=== PATIENT | female | born 1950 | race Caucasian/White ===

== ENCOUNTER → 2016-08-31 | Outpatient (CLI) | payer MEDICARE ==
[2016-08-31 11:21] LABS: Basophils # (A) 0.1 k/uL (0-0.2); Basophils % (A) 1 %; CH 29.4; CHCM 33.4; Eosinophils # (A) 0.3 k/uL (0-0.7); Eosinophils % (A) 3 %; HCT 39.3 % (34.0-46.0); HGB 13.2 gm/dL (11.4-16.0); Luc # (Auto) 0.14; Luc % (Auto) 1; Lymphocytes # (A) 3.4 k/uL (1.0-4.8); Lymphocytes % (A) 30 %; MCH 29.8 pg (25.0-35.0); MCHC 33.7 g/dL (31.0-37.0); MCV 88.6 fL (80.0-100.0); Mean Platelet Volume 8.3; Monocytes # (A) 0.5 k/uL (0-1.0); Monocytes % (A) 4 %; Neutrophils # (A) 6.7 k/uL (1.3-7.7); Neutrophils % (A) 61 %; RBC 4.44 m/uL (3.80-5.40); RDW 13.7 % (11.5-15.5); WBC 11.1 k/uL (3.8-10.6); WBC (Perox) 10.68
== END | disposition home or self-care (01) ==
LOC: LABPAT 10:05
PROVIDERS: ATTEND Obstetrics & Gynecology
DX: Z01.812 Encounter for preprocedural laboratory examination (principal); N95.0 Postmenopausal bleeding; N84.0 Polyp of corpus uteri
CPT/HCPCS: 85025

== ENCOUNTER 2016-09-15 07:05 | Day surgery (SDC) | payer MEDICARE ==
[2016-09-07 15:39] VITALS: BMI 36.3
--- NOTE | 2016-09-14 15:08 | HP ---
This is a 65 -year-old female who presented with postmenopausal bleeding, bright red for approximately four months. The patient underwent an office endometrial biopsy which revealed fragments of endometrial polyps with glandular disorder. With this in mind, she is scheduled for diagnostic hysteroscopy, D&C, and polypectomy. I have reviewed with her in detail, the risks, benefits and alternatives of this procedure. A second opinion has been offered and declined. All questions answered to the patients satisfaction. The ACOG pamphlet on the procedure have been given to the patient for her thorough review. Past medical history is significant for diabetes, hypertension and history of stroke. Past surgical history: Carotid artery repair in 2010. Current medications: 1. Amlodipine 5 mg once daily. 2. Baby aspirin daily. 3. Benazepril 20 mg once daily. 4. Glipizide 5 mg two times daily before meals. 5. Meloxicam 15 mg once daily. 6. Metoprolol 50 mg once daily. ALLERGIES: INCLUDE PENICILLIN TO WHICH REPORTS A RASH. FAMILY HISTORY: Significant for heart attack in the patients brother and hypertension. Reproductive history: Significant for 4 pounds, 12 ounce vaginal . SOCIAL HISTORY: Never been a tobacco smoker. Denies alcohol and drug use. The patient is and retired. REVIEW OF SYSTEMS: Otherwise negative. On examination, this is a pleasant white female, she is 4 foot 9 and one half inches, 176 pounds, BMI 37, blood pressure 142/90 in the seated position. The general physical exam is within normal limits. HEENT: exam is negative. No thyromegaly. No cervical lymphadenopathy. Chest is clear in all singleton. Abdomen is soft, nontender, no organosplenomegaly. There is no CVA tenderness. The breasts exam reveals breasts to be bilaterally symmetric to inspection, no skin dimpling, nipple discharge or axillary adenopathy. The pelvic exam reveals normal appearing external genitalia, cervix is multiparous. Uterus is small, mobile, nontender. Adnexa are negative bilaterally. IMPRESSION: Four month history of postmenopausal bleeding, office endometrial sampling revealing fragments of endometrial polyps with glandular disorder. PLAN: The patient is scheduled for diagnostic hysteroscopy, D&C and polypectomy. All risks, benefits and alternatives of the above procedure are reviewed with the patient. Second opinion offered and declined. All questions answered. [facility] HOSPITALJessica
[~2016-09-15 07:05] MED LIST: FAMOTIDINE 20 MG/2 ML VIAL IV PRN; HYDROmorphone 1 MG/ML 1 ML SYRINGE IVP PRN; LACTATED RINGERS 1,000 ML IV SCH; LIDOCAINE 1% 20 ML VIAL (10MG/ML) FOR IV START INTRADERMA PRN; ONDANSETRON 4 MG/2 ML VIAL IVP PRN; Pre Op ABX Message 1 EACH MISC MISCELLANE ONE
[2016-09-15 07:48] LABS: Glucose,Whole Blood 206 mg/dL (75-99)
[2016-09-15] MEDS ORDERED: PROPOFOL 10 MG/ML 20 ML VIAL IV ONE (08:03)
[2016-09-15] MEDS ORDERED: fentaNYL (PF) 50 MCG/ML 2 ML AMP ONE (08:03)
[2016-09-15] MEDS ORDERED: LIDOCAINE 1% INJ 10MG/ML (20 ML MDV) ONE (08:03)
[2016-09-15] MEDS ORDERED: MIDAZOLAM 2 MG/2 ML VIAL ONE (08:03)
[2016-09-15] MEDS ORDERED: KETOROLAC 30 MG/ML 1 ML VIAL ONE (08:03)
--- NOTE | 2016-09-15 08:28 | P.OP ---
Date of Procedure: 09/15/16 Preoperative Diagnosis: Postmenopausal bleeding, endometrial polyps Postoperative Diagnosis: Pathology pending Procedure(s) Performed: Hysteroscopy, polypectomy, D&C Implants: Anesthesia: GETA Surgeon: Aydee Escobar Estimated Blood Loss (ml): 25 IV fluids (ml): 400 Urine output (ml): 100 Pathology: other (Intrauterine curettings) Condition: stable Disposition: PACU Indications for Procedure: Operative Findings: Description of Procedure: Patient is brought to the operating suite where a general anesthetic is administered. She's placed in the dorsal lithotomy position. The cervix vagina perineum and perirectal areas are all prepped and draped in the usual sterile fashion. The appropriate timeout is performed to assure proper patient and procedural identification. Antibiotics are not deemed necessary. Please note that preoperative blood sugar was 209, this will be re-checked in the recovery room. The bladder is drained for approximately 100 mL of clear yellow urine. Examination under anesthesia reveals a small anteverted uterus, negative adnexa bilaterally. Weighted speculum was placed into the vagina. There is a grade 3- 4 rectocele noted along with a grade 2-3 uterine prolapse as well. The anterior lip of the cervix is grasped with a double-tooth tenaculum. The cervix and uterus then sounded to a depth of 8 cm. The cervix is gently and systematically dilated using Hanks dilators. The hysteroscope was placed and fluid is injected into the cavity to distend the cavity. Inspecting the cavity does reveal the presence of multiple small polyps. The hysteroscope was removed. A medium sharp curette is used and the cavity is gently and systematically curettaged for a moderate amount of tissue and endometrial polyps. When this is complete, polyp forceps are used and no additional tissue is procured. The double-tooth tenaculum is removed from the anterior lip of the cervix. Hemostasis is excellent. All sponge needle and enhancement counts are correct at the end of the procedure. Patient is brought back to the recovery room in very good condition with stable vital signs including pulse of 72, blood pressure 124/71. Toradol is given prior to leaving the operative suite. Patient will follow-up with me in the office in 2 weeks.
[2016-09-15 08:40] VITALS: TEMP 97.3
[2016-09-15 08:50] VITALS: RESP 16
[2016-09-15 08:53] LABS: Glucose,Whole Blood 202 mg/dL (75-99)
[2016-09-15 10:02] VITALS: BP 150/76; PULSE 67
== END 2016-09-15 10:09 | disposition home or self-care (01) ==
LOC: OR 07:05
PROVIDERS: ATTEND Obstetrics & Gynecology
DX: N85.00 Endometrial hyperplasia, unspecified (principal); N81.2 Incomplete uterovaginal prolapse; N84.0 Polyp of corpus uteri; E11.9 Type 2 diabetes mellitus without complications; Z79.84 Long term (current) use of oral hypoglycemic drugs; I10 Essential (primary) hypertension; Z86.73 Personal history of transient ischemic attack (TIA), and cerebral infarction without residual deficits; Z79.1 Long term (current) use of non-steroidal anti-inflammatories (NSAID); Z79.899 Other long term (current) drug therapy; Z88.0 Allergy status to penicillin
CPT/HCPCS: 88305; 58558; J2250; J2405; J2001; J3010; J1885; J2704

== ENCOUNTER → 2017-10-19 | Outpatient (CLI) | payer MEDICARE ==
[2017-10-19 11:05] LABS: ALT 27 U/L (9-52); AST 21 U/L (14-36); Cholesterol 171 mg/dL (<200); HDL Cholesterol 30 mg/dL (40-60); LDL Cholesterol,Calculated 85 mg/dL (0-99); Triglycerides 280 mg/dL (<150)
== END | disposition home or self-care (01) ==
LOC: LABWHC1 09:55
PROVIDERS: ATTEND Internal Medicine Cardiovascular Disease
DX: E78.2 Mixed hyperlipidemia (principal)
CPT/HCPCS: 36415; 80061; 84450; 84460

== ENCOUNTER → 2020-06-25 | Outpatient (CLI) | payer MEDICARE ==
[2020-06-25 09:35] LABS: Basophils # (A) 0.1 k/uL (0-0.2); Basophils % (A) 1 %; Eosinophils # (A) 0.2 k/uL (0-0.7); Eosinophils % (A) 2 %; HCT 34.2 % (34.0-46.0); HGB 11.5 gm/dL (11.4-16.0); Lymphocytes # (A) 2.8 k/uL (1.0-4.8); Lymphocytes % (A) 29 %; MCH 29.5 pg (25.0-35.0); MCHC 33.7 g/dL (31.0-37.0); MCV 87.4 fL (80.0-100.0); Mean Platelet Volume 8.5; Monocytes # (A) 0.3 k/uL (0-1.0); Monocytes % (A) 4 %; Neutrophils % (A) 63 %; Platelet Count 325 k/uL (150-450); RBC 3.91 m/uL (3.80-5.40); RDW 13.9 % (11.5-15.5); WBC 9.5 k/uL (3.8-10.6)
[2020-06-25 09:56] LABS: Potassium 4.7 mmol/L (3.5-5.1)
== END | disposition home or self-care (01) ==
LOC: LABPAT 08:54
PROVIDERS: ATTEND Obstetrics & Gynecology
DX: Z01.812 Encounter for preprocedural laboratory examination (principal); N95.0 Postmenopausal bleeding; N81.6 Rectocele; N81.4 Uterovaginal prolapse, unspecified; N84.1 Polyp of cervix uteri; E11.9 Type 2 diabetes mellitus without complications
CPT/HCPCS: 36415; 80051; 82565; 82947; 84520; 85025; 86850; 86900; 86901; 87086

== ENCOUNTER 2020-07-02 05:37 | Day surgery (SDC) | payer MEDICARE ==
[2020-06-27 12:28] VITALS: BMI 32.7
[~2020-07-02 05:37] MED LIST changes: +DEXAMETHASONE SOD PHOSPHATE 4 MG/ML 1 ML VIAL IV ONE; -FAMOTIDINE 20 MG/2 ML VIAL IV PRN; -HYDROmorphone 1 MG/ML 1 ML SYRINGE IVP PRN; -LIDOCAINE 1% 20 ML VIAL (10MG/ML) FOR IV START INTRADERMA PRN; +MIDAZOLAM 2 MG/2 ML VIAL IV PRN; +ONDANSETRON 4 MG/2 ML VIAL IVP ONE; -ONDANSETRON 4 MG/2 ML VIAL IVP PRN; -Pre Op ABX Message 1 EACH MISC MISCELLANE ONE
[2020-07-02 06:30] LABS: Glucose,Whole Blood 214 mg/dL (75-99)
[2020-07-02] MEDS ORDERED: LIDOCAINE 1% (10MG/ML) FOR IV START INTRADERMA ONE (06:40)
[2020-07-02] MEDS ORDERED: HYDROmorphone 0.5 MG/0.5 ML SYRINGE IVP PRN (07:00)
[2020-07-02] MEDS ORDERED: fentaNYL (PF) 50 MCG/ML 2 ML AMP IVP ONE (07:15)
[2020-07-02] MEDS ORDERED: ROCURONIUM 10 MG/ML (5 ML VIAL) IV ONE (07:33)
[2020-07-02] MEDS ORDERED: NEOSTIGMINE 1 MG/ML 10 ML VIAL ONE (07:33)
[2020-07-02] MEDS ORDERED: fentaNYL (PF) 50 MCG/ML 2 ML AMP ONE (07:33)
[2020-07-02] MEDS ORDERED: GLYCOPYRROLATE 0.2 MG/ML 2 ML VIAL ONE (07:33)
[2020-07-02] MEDS ORDERED: PROPOFOL 10 MG/ML 20 ML VIAL IV ONE (07:33)
[2020-07-02] MEDS ORDERED: WATER FOR INJECTION, STERILE 10 ML VIAL IV ONE (07:33)
[2020-07-02] MEDS ORDERED: MORPHINE SULFATE (PF) 0.3 MG/0.3 ML SYR ONE (07:33)
[2020-07-02] MEDS ORDERED: LIDOCAINE 1% INJ 10MG/ML (20 ML MDV) ONE (07:33)
[2020-07-02] MEDS ORDERED: PHENYLEPHRINE-0.9% NACL SYG 1,000 MCG/10 ML SYRINGE ONE (07:33)
[2020-07-02] MEDS ORDERED: SUCCINYLCHOLINE CHLORIDE 100 MG/5 ML SYR IV ONE (07:33)
[2020-07-02] MEDS ORDERED: ePHEDrine SULFATE/0.9% NACL/PF 50 MG/5 ML SYRINGE IV ONE (07:33)
[2020-07-02] MEDS ORDERED: VASOPRESSIN 20 UNIT/ML 1 ML VIAL SQ ONE (08:00)
[2020-07-02] MEDS ORDERED: BACITRACIN ZINC 500 UNIT/GM OINT 28.4 GM TUBE TOPICAL ONE ×2 (08:12→08:57)
[2020-07-02] MEDS ORDERED: METOCLOPRAMIDE 5 MG/ML 2 ML VIAL IVP PRN (09:18)
[2020-07-02] MEDS ORDERED: ONDANSETRON 4 MG/2 ML VIAL IVP PRN (09:18)
[2020-07-02] MEDS ORDERED: diphenhydrAMINE 50 MG/ML 1 ML VIAL IVP PRN (09:18)
[2020-07-02] MEDS ORDERED: KETOROLAC 15 MG/ML 1 ML VIAL IVP PRN (09:18)
[2020-07-02] MEDS ORDERED: SIMETHICONE 80 MG CHEWABLE PO PRN (09:18)
--- NOTE | 2020-07-02 09:18 | P.OP ---
Date of Procedure: 07/02/20 Preoperative Diagnosis: Postmenopausal bleeding, large endocervical polyp, uterine prolapse, grade 3-4 rectocele Postoperative Diagnosis: Same, pathology pending, normal-appearing ovaries bilaterally Procedure(s) Performed: Gen. hysterectomy, posterior repair Anesthesia: JOYCE Surgeon: Aydee Escobar Tig Welder #1: Natasha Navarrete Estimated Blood Loss (ml): 50 IV fluids (ml): 500 Urine output (ml): 100 Pathology: other (Endocervical polyp, cervix and uterus.) Condition: stable Disposition: PACU Description of Procedure: Patient is brought to the operating suite after a spinal with Duramorph is placed in the preoperative area. She's placed in the dorsal lithotomy position after general anesthetic is administered. Antibiotics are given. The appropriate timeout is performed to assure proper patient and procedural identification. The cervix, vagina, and perineal bodies are all prepped and draped in usual sterile fashion. The bladder is drained for approximately 100 mL of clear yellow. Weighted speculum was placed into the vagina. Anterior lip of the cervix is grasped with a double-tooth tenaculum. The large pedunculated endocervical polyp is removed for better visualization of the anatomy and surgical field. Cervix is injected circumferentially with a dilute Pitressin solution. A [place] blade scalpel is used to incise the cervix circumferentially with a V positioning at 6:00. A sponge is used to sweep the mucosa from the underlying fascial plane. Peritoneum is entered at 6:00, suture tied with 2-0 Vicryl, and held with a hemostat. Large billed speculum is then placed into the peritoneal cavity. The right uterosacral ligament is identified, clamped cut and suture ligated, held with a hemostat laterally. At all times the vaginal mucosa is swept well from the operative field to avoid bladder and/or ureteral injury. The same procedure is carried out contralaterally, again the 0 Vicryl suture is held with a hemostat laterally. The vascularization is skeletonized, doubly clamped cut and suture ligated. Additional pedicles are taken superior to the vessels bilaterally. Peritoneum is entered at 12:00, the uterus is "walked out" posteriorly. Meliza clamps are used across the final pedicles and the uterus and cervix are removed. The pedicles are securely tied with 0 Vicryl, flashed, and retied. Bilateral ovaries are visualized with a sponge stick and noted to be normal, left in situ. The speculum is then changed to the shallow billed speculum. The 2-0 Vicryl suture placed at 6:00 is brought around circumferentially to close the peritoneum in a pursestring fashion. The uterosacral cardinal ligaments are now brought across to incorporate the opposite ligament as well as vaginal mucosa. Several additional [id number] sutures of 0 Vicryl is used to close the vaginal cuff. Hemostasis is very good. Training her portion of tissue is removed from the perineal body. The posterior vaginal mucosa is injected with the same dilute Pitressin solution in the midline to the apex of the defect. Metzenbaum scissors are used to undermine this area, the edges of the mucosa are held with Allis clamps and a fanlike fashion. Sponge rolled finger is used to sweep the fascia from the overlying mucosal edge. Redundant mucosa is trimmed with Metzenbaum scissors. 2-0 Vicryl suture is used to bring the fascial edges together thereby completely reducing the rectocele. 2-0 Vicryl sutures used in a running locking manner now to close the posterior vaginal wall with an episiotomy like approach for final closure. The vagina is packed with a 1 inch iodophor gauze with basic tracing. Tran catheter is placed, urine is clear. Rectal exam reveals smooth mucosa with no defects palpable growing or other anomalies. Patient is brought back to the recovery room in very good condition with stable vital signs including a pulse of 77, 97% O2 saturation, blood pressure 151/82.
[2020-07-02 09:31] LABS: Glucose,Whole Blood 265 mg/dL (75-99)
[2020-07-02] MEDS ORDERED: INSULIN ASPART (NovoLOG) 100 UNIT/ML VIAL SQ ONE (09:33)
--- NOTE | 2020-07-02 14:29 | P.ANPRN ---
Procedure Note - Anesthesia - Epidural/Spinal Spinal Time Out Performed: Yes Date of Procedure: 07/02/20 Procedure Start Time: 07:20 Procedure Stop Time: 07:35 Location of Patient: PreOp Indication: Acute Post-Operative Pain, Requested by Surgeon Sedation Type: Sedate with meaningful contact maintained Preparation: Sterile Prep Number of Attempts: 2 Position: Sitting Needle Guage: 25 Injectate: Other Blood Aspirated: No Pain Paresthesia on Injection Noted: No Events: Uneventful and Well Tolerated (0.4mg duramorph and 25mcg fentanyl)
[2020-07-02] MEDS: SENNOSIDES-DOCUSATE SODIUM 1 EACH TAB PO SCH (23:44)
[2020-07-02] MEDS ORDERED: IBUPROFEN 400 MG TAB PO PRN (23:45)
[2020-07-03] MEDS: IBUPROFEN 600 MG TAB PO PRN ×3 (00:06→12:11)
[2020-07-03 05:52] VITALS: RESP 16
--- NOTE | 2020-07-03 07:36 | P.PN ---
Progress Note - Text Progress Note Date: 07/03/20 (869) Anesthesia Postop day 1 Subjective: Status Post vaginal hysterectomy with Duramorph. Patient seen and examined. Doing well without complaint. VAS 3 out of 10. Nausea and vomiting yesterday. All abated now.. Afebrile. Gross lower extremity strength intact. . Without apparent anesthetic complications. Objective: Vital signs reviewed Heart: Regular Rate Lungs: Good chest excursion Abdomen: Appears nondistended Assessment: Status post vaginal hysterectomy with Duramorph postop day 1 Plan: Continue current care with your medical management. Anticipated and the Duramorph around noon tonight, you may see increased pain needs around this ana maria e.
[2020-07-03 07:40] VITALS: BP 150/68; PULSE 83; TEMP 97.7
[2020-07-03] MEDS ORDERED: METOPROLOL TARTRATE 50 MG TAB PO STA (07:47)
--- NOTE | 2020-07-03 07:54 | P.DS ---
Providers Date of admission: 07/02/20 Expected date of discharge: 07/03/20 Attending physician: Aydee Escobar Primary care physician: [facility] Course: This is a 69-year-old female who presented to my care with a history of postmen opausal bleeding. A very large endocervical polyp was noted. Endometrial biopsy was negative. Patient was noted to have rectocele and uterine prolapse, and therefore the decision was made to proceed with vaginal hysterectomy and rectocele repair. Please see admitting history and physical for details. Yesterday patient underwent a vaginal hysterectomy and posterior colporrhaphy. She did well intraoperatively. Ovaries appeared atrophic and were left in situ. Vagina was packed with iodoform gauze and a Tran catheter was placed. Please see dictated operative note for details. This morning the patient is doing well. She is voiding, passing flatus, and ambulating without issues. She has only minimal pain. Scant vaginal drainage. Abdomen is soft and nontender. Extremities are negative. No CVA tenderness. Chest is clear. Patient is judged be in very good condition for discharge home. She will resume her home medications. She will call with any fevers shakes or chills, bloody vaginal drainage, with any difficulties with bowel or bladder. She will use [id number] ibuprofen and/or Tylenol as needed for pain relief. No driving for 2 weeks, no heavy lifting. Nothing per vagina. Assessment: Doing well postoperative day #1 Patient Condition at Discharge: Good Plan - Discharge Summary Discharge Rx Participant: No New Discharge Prescriptions: No Action Meloxicam 15 mg PO DAILY Metoprolol Tartrate [Lopressor] 50 mg PO BID Benazepril HCl 20 mg PO QAM Atorvastatin [Lipitor] 40 mg PO HS glipiZIDE [Glucotrol] 10 mg PO AC-BID metFORMIN HCL [Glucophage] 500 mg PO BID Omeprazole 20 mg PO HS Aspirin [Adult Low Dose Aspirin EC] 81 mg PO DAILY Discharge Medication List Benazepril HCl 20 mg PO QAM 09/07/16 [History] Meloxicam 15 mg PO DAILY 09/07/16 [History] Metoprolol Tartrate [Lopressor] 50 mg PO BID 09/07/16 [History] Aspirin [Adult Low Dose Aspirin EC] 81 mg PO DAILY 06/27/20 [History] Atorvastatin [Lipitor] 40 mg PO HS 06/27/20 [History] Omeprazole 20 mg PO HS 06/27/20 [History] glipiZIDE [Glucotrol] 10 mg PO AC-BID 06/27/20 [History] metFORMIN HCL [Glucophage] 500 mg PO BID 06/27/20 [History] Follow up Appointment(s)/Referral(s): Aydee Escobar MD [STAFF PHYSICIAN] - 2 Weeks Discharge Disposition: HOME SELF-CARE
[2020-07-03] MEDS ORDERED: METOPROLOL TARTRATE 50 MG TAB PO SCH (09:00)
[2020-07-03] MEDS: SENNOSIDES-DOCUSATE SODIUM 1 EACH TAB PO SCH (09:06)
== END 2020-07-03 13:55 | disposition home or self-care (01) ==
LOC: OR 05:37 → 4FBP 09:09 → OR 07-03 13:55
PROVIDERS: ATTEND Obstetrics & Gynecology
DX: N95.0 Postmenopausal bleeding (principal); N84.1 Polyp of cervix uteri; N81.3 Complete uterovaginal prolapse; I10 Essential (primary) hypertension; E11.9 Type 2 diabetes mellitus without complications; Z20.822 Contact with and (suspected) exposure to COVID-19; Z79.82 Long term (current) use of aspirin; Z79.84 Long term (current) use of oral hypoglycemic drugs; Z79.899 Other long term (current) drug therapy; Z88.1 Allergy status to other antibiotic agents; Z88.0 Allergy status to penicillin; Z82.49 Family history of ischemic heart disease and other diseases of the circulatory system; Z86.73 Personal history of transient ischemic attack (TIA), and cerebral infarction without residual deficits
CPT/HCPCS: 88307; 87635; 58270; J2250; J1200; J1100; J2710; J2765; J0690; J2405; J2001; J2274; J3010; J2370; J0330; J2704; 86850; 86900; 86901